=== PATIENT | male | born 2000 | race Two or more races ===

== ENCOUNTER 2020-06-13 00:22 | Emergency (ER) | payer MEDICAID ==
[~2020-06-13] VITALS: Ht 180.3 cm; Wt 72.7 kg
[2020-06-13] MEDS ORDERED: ALBUTEROL INHALER 1 PUFF/90 MCG INHALER IH PRN (01:35)
[2020-06-13 02:19] VITALS: BP 120/75
== END 2020-06-13 02:15 | disposition home or self-care (01) ==
LOC: ER 00:23
DX: R06.2 Wheezing (principal); R07.89 Other chest pain; R42 Dizziness and giddiness
CPT/HCPCS: 71045; 99284